=== PATIENT | female | born 1955 | race African-American/Black ===

== ENCOUNTER 2022-05-20 13:03 | Inpatient (IN) | payer MEDICARE, MEDICAID ==
[~2022-05-20] VITALS: Ht 157.5 cm; Wt 80.7 kg
[2022-05-20] MEDS ORDERED: ASPIRIN 325MG TABLET PO NR (14:30)
[2022-05-20] MEDS ORDERED: IOHEXOL-350 100 ML BOTTLE ONE (15:02)
[2022-05-20 15:08] LABS: BASOPHILS % 0.9 % (0.0-2.0); EOSINOPHILS % 2.4 % (0.0-5.0); HEMOGLOBIN. 11.4 g/dL (12.0-16.0); LYMPHOCYTES % 32.4 % (20.0-50.0); MEAN CORPUSCULAR HEMOGLOBIN 32.1 pg (28.0-32.0); MEAN CORPUSCULAR VOLUME 95.5 fL (81.0-99.0); MEAN PLATELET VOLUME 7.7 fl (7.4-10.4); MONOCYTES % 9.3 % (2.0-8.0); PLATELET 372 x1000/uL (130-400); RED BLOOD CELL COUNT 3.56 mill/uL (4.2-5.4); RED CELL DISTRIBUTION WIDTH 15.1 % (11.6-14.6)
[2022-05-20 15:14] LABS: CHLORIDE 108 mEq/L (98-107)
[2022-05-20 15:25] LABS: ETHANOL BLOOD < 10 mg/dL; PROTHROMBIN TIME 10.9 sec (9.6-11.0)
[2022-05-20 20:50] VITALS: BP 102/60
[2022-05-20] MEDS ORDERED: LISI40TA13 PO (23:45)
[2022-05-20] MEDS ORDERED: IBUP-2029 PO (23:45)
[2022-05-20] MEDS ORDERED: DIAZ10TA4 PO (23:45)
[2022-05-20] MEDS ORDERED: METF-414 MT (23:45)
[2022-05-20] MEDS ORDERED: ZOLP10TA2 PO (23:45)
[2022-05-21] VITALS: BP 96/43
[2022-05-21] MEDS ORDERED: ASPIRIN 300MG SUPP PR NR (00:15)
[2022-05-21] MEDS: DEXT 5%/0.45% NACL KCL 20MEQ/L 1,000 ML IV SCH ×2 (01:06→16:56)
[2022-05-21 04:00] VITALS: BP 109/51
[2022-05-21] MEDS: MORPHINE SULFATE 2 MG/ML CPJ (NOT FOR IM USE) IV PRN ×2 (04:43→10:03)
[2022-05-21 07:13] LABS: BASOPHILS % 0.5 % (0.0-2.0); EOSINOPHILS % 3.8 % (0.0-5.0); LYMPHOCYTES % 48.7 % (20.0-50.0); MEAN CORPUSCULAR HEMOGLOBIN 32.3 pg (28.0-32.0); MEAN CORPUSCULAR VOLUME 96.4 fL (81.0-99.0); MEAN PLATELET VOLUME 8.3 fl (7.4-10.4); MONOCYTES % 9.6 % (2.0-8.0); NEUTROPHILS % 37.4 % (40.0-76.0); PLATELET 357 x1000/uL (130-400); RED BLOOD CELL COUNT 3.42 mill/uL (4.2-5.4); RED CELL DISTRIBUTION WIDTH 15.2 % (11.6-14.6)
[2022-05-21 08:00] VITALS: BP 131/68
[2022-05-21 09:10] LABS: CHLORIDE 110 mEq/L (98-107)
[2022-05-21 09:18] LABS: HDL CHOLESTEROL 70 mg/dL (40-59); LDL CHOLESTEROL 97 mg/dL (5-100)
[2022-05-21] MEDS: ENOXAPARIN 40MG/0.4ML SYR SUBCUT SCH (10:02)
[2022-05-21 12:00] VITALS: BP 130/72
[2022-05-21] MEDS ORDERED: NALOXONE HCL 0.4MG/ML VIAL IV PRN (14:15)
[2022-05-21] MEDS ORDERED: TRAMADOL 50MG TABLET PO PRN (15:30)
[2022-05-21 16:00] VITALS: BP 117/60
[2022-05-21] MEDS ORDERED: DIPHENHYDRAMINE 25MG CAPSULE PO PRN (16:30)
[2022-05-21 20:00] VITALS: BP 134/57
[2022-05-21] MEDS: HYDROCODONE/ACETAMINOPHEN 5/325MG TABLET PO PRN (20:42)
[2022-05-21] MEDS: ATORVASTATIN CALCIUM 40MG TABLET PO SCH (20:42)
[2022-05-22] VITALS: BP 122/60
[2022-05-22 04:00] VITALS: BP 112/49
[2022-05-22] MEDS: HYDROCODONE/ACETAMINOPHEN 5/325MG TABLET PO PRN ×3 (06:46→20:53)
[2022-05-22 08:00] VITALS: BP 139/61
[2022-05-22] MEDS: FLUOXETINE HCL 10 MG CAPSULE PO SCH (09:23)
[2022-05-22] MEDS: ASPIRIN 81MG TABLET PO SCH (09:24)
[2022-05-22] MEDS: ENOXAPARIN 40MG/0.4ML SYR SUBCUT SCH (09:24)
[2022-05-22] MEDS: ARIPIPRAZOLE 5MG TABLET PO SCH (09:24)
[2022-05-22 12:00] VITALS: BP 130/50
[2022-05-22 16:00] VITALS: BP 115/58
[2022-05-22 17:07] LABS: CLARITY URINE CLOUDY (CLEAR); COLOR URINE YELLOW (YELLOW); KETONES URINE TRACE (NEGATIVE); LEUKOCYTE ESTERASE URINE 3+ (NEGATIVE); NITRITE URINE NEGATIVE (NEGATIVE); OCCULT BLOOD URINE TRACE (NEGATIVE); PH URINE 5.5 (4.5-8.0); PROTEIN URINE NEGATIVE (NEGATIVE); SPECIFIC GRAVITY URINE 1.017 (1.005-1.030); UROBILINOGEN URINE 0.2 E.U./dL (0.2-1.0)
[2022-05-22 17:20] LABS: *AMPHETAMINES SCREEN URINE NEGATIVE (NEGATIVE); *BARBITURATES SCREEN URINE NEGATIVE (NEGATIVE); *BENZODIAZEPINES SCREEN URINE NEGATIVE (NEGATIVE); *COCAINE SCREEN URINE NEGATIVE (NEGATIVE); CANNABINOID URINE SCREEN PRESUMTIVE POSITIVE (NEGATIVE); METHADONE URINE SCREEN NEGATIVE (NEGATIVE); OPIATES URINE SCREEN PRESUMTIVE POSITIVE (NEGATIVE); PHENCYCLIDINE URINE SCREEN NEGATIVE (NEGATIVE)
[2022-05-22 20:00] VITALS: BP 121/57
[2022-05-22] MEDS: ATORVASTATIN CALCIUM 40MG TABLET PO SCH (20:53)
[2022-05-22] MEDS ORDERED: ZOLPIDEM TARTRATE 5MG TABLET PO PRN (21:00)
[2022-05-23] VITALS: BP 138/69
[2022-05-23] MEDS: HYDROCODONE/ACETAMINOPHEN 5/325MG TABLET PO PRN ×2 (03:56→15:33)
[2022-05-23 04:00] VITALS: BP 125/64
[2022-05-23 08:00] VITALS: BP 121/70
[2022-05-23] MEDS: ARIPIPRAZOLE 5MG TABLET PO SCH (08:24)
[2022-05-23] MEDS: ENOXAPARIN 40MG/0.4ML SYR SUBCUT SCH (08:24)
[2022-05-23] MEDS: FLUOXETINE HCL 10 MG CAPSULE PO SCH (08:25)
[2022-05-23] MEDS: ASPIRIN 81MG TABLET PO SCH (08:25)
[2022-05-23] MEDS ORDERED: FLUOX10 PO (11:00)
[2022-05-23] MEDS ORDERED: LEVOFLOXACIN 500MG TABLET PO SCH (11:00)
[2022-05-23 11:43] VITALS: BP 121/70
[2022-05-23 12:00] VITALS: BP 116/70
[2022-05-23] MEDS ORDERED: LEVO-65 MT (12:43)
[2022-05-23] MEDS ORDERED: LEVOFLOXACIN 250MG TABLET PO SCH (15:22)
[2022-05-23 16:00] VITALS: BP 99/62
[2022-05-24] MEDS ORDERED: LEVOFLOXACIN 250MG TABLET PO SCH (11:00)
== END 2022-05-23 19:02 | disposition home or self-care (01) | DRG 58 ==
LOC: ER 13:03 → 7WST 16:56 → EDBEDREQTM 17:01 → EDBEDREQ 17:01 → EDBEDREQSVC 17:01 → ENRESERV 19:55
PROVIDERS: ADMIT Internal Medicine; ATTEND Internal Medicine
DX: R47.81 Slurred speech (principal); E44.0 Moderate protein-calorie malnutrition; F31.9 Bipolar disorder, unspecified; E11.9 Type 2 diabetes mellitus without complications; F20.9 Schizophrenia, unspecified; I10 Essential (primary) hypertension; Z88.0 Allergy status to penicillin; Z88.1 Allergy status to other antibiotic agents; Z68.32 Body mass index [BMI] 32.0-32.9, adult
CPT/HCPCS: 36415; 70496; 70498; 70551; 71045; 80048; 80053; 80061; 80305; 80320; 81003; 82962; 84484; 85025; 87077; 87186; 92610; 93005; 93306; 93970; 97162; 97166; 99291; J1650; J2270; Q0163; Q9967; G0480